=== PATIENT | female | born 1980 | race African-American/Black ===

== ENCOUNTER 2016-11-08 03:46 | Emergency (ER) | payer OTHER ==
--- NOTE | ~2016-11-08 | CR72 ---
[facility] A Service of [facility] RADIOLOGY TEXT RESULTS PATIENT: MELLO PADILLA LOCATION: [facility] : 76 UNIT #: [id number] AGE: [address]: Alfreidto Pagan MD SEX: F ORDER DR: [id number] [place] [address] [place], [place] [address] [id number] MR#: [id number] Acc #: [id number] NAME: MELLO PADILLA : 1980 SEX: F STUDY DATE/TIME: 11/08/2016 3:40 UNIT: [facility] ROOM: STUDY DESCRIPTION: CR Chest Single View Portable Attending Physician: Alfredito Pagan M.D. Ordering Physician: Alfredito Pagan M.D. Primary Care Physician: Primary Care Physician No MEDICAL IMAGING REPORT This report is preliminary unless electronic signature is present EXAM AP portable chest, 11/08/2016 HISTORY 36-year-old female in the ED complaining of 2-week history of chest pain, becoming acutely severe on the left tonight prior to arrival. TECHNIQUE AP portable chest x-ray. FINDINGS Heart size and pulmonary vascularity are within normal limits. The lungs are expanded and clear. No visible pulmonary infiltrate or pleural effusion. No change since 06/26/2015. IMPRESSION Negative chest. Dictated by... Dimitris Pelayo M.D. THIS IS AN ELECTRONICALLY VERIFIED REPORT Dimitris Pelayo M.D. at 11/09/2016 9:54 PM Aidan TD: 11/09/2016 08:16 JOB #: [id number] MEDICAL IMAGING REPORT COPY
--- NOTE | ~2016-11-08 | EKG ---
PATIENT: MELLO PADILLA UNIT #: [id number] Ventricular Rate: 87 BPM Atrial Rate: 87 BPM P-R Interval: 184 ms QRS Duration: 84 ms Q-T Interval: 354 ms QTC Calculation(Bezet): 425 ms P [place]: 51 degrees Calculated R [place]: 21 degrees Calculated T [place]: 54 degrees Diagnosis Line: Normal sinus rhythm Diagnosis Line: Minimal voltage criteria for LVH, may be normal Diagnosis Line: variant Diagnosis Line: Borderline ECG Diagnosis Line: When compared with ECG of 26-JUN-2015 14:51, Diagnosis Line: No significant change was found Diagnosis Line: Confirmed by GAGE ORTIZ MD ([id number]) on Diagnosis Line: 11/08/2016 8:02:34 PM INTERPRETING MD: KARRIE
[2016-11-08 04:13] LABS: POC - CKMB 4.8 ng/mL (0.0-7.9); POC - TROPONIN <0.05 ng/mL (<=0.05)
[2016-11-08 04:30] LABS: BASOPHIL# 0.1 X10e3 (0-0.3); BASOPHIL% 1.1 % (0-2.5); EOSINOPHIL# 0.1 X10e3 (0-0.7); EOSINOPHIL% 0.8 % (0.0-7.0); HEMOGLOBIN 13.2 gm/dL (12.0-16.0); LYMPHOCYTE% 42.6 % (17.0-45.0); MEAN CELL VOLUME 84.8 FL (83-96); MEAN CORPUSCULAR HEMOGLOBIN 27.3 PG (28-34); MEAN CORPUSCULAR HGB CONC 32.2 g/dL (30-36); MEAN PLATELET VOLUME 9.2 FL (6.5-11.5); MONOCYTE# 0.6 X10e3 (0-1.0); MONOCYTE% 6.8 % (3.0-12.0); NEUTROPHIL# 4.6 X10e3 (1.5-7.1); NEUTROPHIL% 48.7 % (40-75); RED BLOOD COUNT 4.84 X10e (3.90-5.30); WHITE BLOOD COUNT 9.4 X10e3 (4.0-10.5)
[2016-11-08 04:42] LABS: ALBUMIN SERUM 3.7 g/dL (3.5-5.0); ALKALINE PHOSPHATASE 63 U/L (32-92); ALT (SGPT) 17 U/L (10-40); AST (SGOT) 30 U/L (10-42); BILIRUBIN, DIRECT 0.3 mg/dL (0.0-0.2); BILIRUBIN,INDIRECT 0.7 mg/dL (0.0-0.9); BLOOD UREA NITROGEN 13 mg/dL (9-23); BUN/CREATININE RATIO 14.44; CALCIUM SERUM 8.7 mg/dL (8.4-10.2); CARBON DIOXIDE 25 mmol/L (22-31); CHLORIDE 101 mmol/L (100-111); CREATININE SERUM 0.9 mg/dL (0.6-1.4); GLOM FILT RATE Estimated ABOVE60 mL/min (>60); GLUCOSE FASTING 115 mg/dL (70-110); PROTEIN TOTAL SERUM 7.6 g/dL (6.0-8.3); SODIUM 134 mmol/L (135-145)
[2016-11-08 04:51] LABS: DIFF IND NO; PLATELET COUNT 343 X10e3 (140-420)
[2016-11-08 05:56] LABS: POC - CKMB 3.3 ng/mL (0.0-7.9); POC - TROPONIN <0.05 ng/mL (<=0.05)
== END 2016-11-08 06:15 | disposition home or self-care (01) ==
LOC: CED 03:46
PROVIDERS: Emergency Medicine
DX: R07.89 Other chest pain (principal); R42 Dizziness and giddiness; K21.9 Gastro-esophageal reflux disease without esophagitis; I10 Essential (primary) hypertension; F17.200 Nicotine dependence, unspecified, uncomplicated; Z88.0 Allergy status to penicillin
CPT/HCPCS: 36415; 71010; 80048; 80076; 82553; 84484; 85025; 93005; 96361; 96374; 99284